=== PATIENT | male | born 1940 | race Caucasian/White ===

== ENCOUNTER 2023-10-31 09:14 | Emergency (ER) | payer MEDICARE, SELFPAY ==
[2023-10-31 09:28] VITALS: BP 169/72
--- NOTE | 2023-10-31 09:56 | ED.GENMED ---
History of Present Illness
General
Chief Complaint: Flank Pain
Source: patient and spouse
Exam Limitations: none
Time Seen by Provider: 10/31/23 09:46
Travel History
Have you had any contact with someone who has COVID-19?: No
Do you have any symptoms of coronavirus? Fever > 100 degrees, chills, cough, shortness of breath, sore throat, loss of taste or smell, muscle aches, or headache?: No
History of Present Illness
History of Present Illness:
Developed right flank and mild right back pain this morning. Some fullness. No vomiting. Mild nausea. No urinary symptoms no fever. Had 3 mildly loose bowel movements this morning. No history of similar pain.
Past History
Past History
ED Past Medical History: Arrthythmia, CAD, HTN, Hypercholesterolemia and Other (kidney stones.)
ED Past Surgical History: Cardiac (cardiac stents)
Patient has exhibited threatening behavior?: No
Social History
Tobacco: Former smoker (40 years ago.)
Alcohol: None (last drank 1.5 years ago.)
Drug: None
Personal: Partner
Living: with family
Review of Systems
Review of Systems
All Other Systems: Not applicable
Constitutional: Denies fever
Respiratory: Reports no symptoms
Cardiac: Reports no symptoms
Phy Exam
Physical Exam
Physical Exam:
GENERAL: Alert and oriented in no apparent distress
EYE: Orbits normal.
NECK: Supple, nontender
ENT: Pharynx without erythema
CARDIAC: Regular rate and rhythm with occasional irregular beat. Mild midsystolic murmur
LUNGS: Clear breath sounds,normal
ABDOMEN: Soft, bowel sounds present. No distention. Minimal right upper quadrant but very lateral in nature. No true CVA tenderness
NEUROLOGICAL: Alert and oriented , grossly non-focal
SKIN: Warm and dry, no rash or lesion, no discoloration, skin intact.
MUSCULOSKELETAL: No edema,no deformity.Good color
PSYCH: Normal and appropriate interaction.
Course
Orders/Labs/Results
Orders:
Orders
10/31/23 09:54
IV Insert/Care/Rem.- Treatment PRN
0.9% Sodium Chloride 500 ml [Nss] 500 ml IV BOLUS
10/31/23 09:55
CT Abd/pel Without Iv Or Oral Urgent
Comment:
Reason For Exam: Right flank pain
10/31/23 10:01
Basic Metabolic Panel Urgent
Complete Blood Count/With Diff Urgent
Lipase Urgent
10/31/23 10:11
PT/INR [Prothrombin Time] Urgent
10/31/23 10:21
Urinalysis Reflex To Culture Urgent
Date Specimen was Collected: 10/31/23
Time Specimen was Collected: 10:13
Urine Microscopic Reflex Cult Urgent
10/31/23 11:04
Comprehensive Metabolic Panel Urgent
Comment: ADD ON
Direct Bilirubin Urgent
Comment: ADD ON
Lipase Urgent
Comment: ADD ON
10/31/23 11:41
Add On- LAB Stat
Tests Added?: sodium, chloride, CO2, BUN, Veterans Contact Representative, glucose, calcuim, lipase
10/31/23 12:01
US Abdomen Complete/Upper Urgent
Reason For Exam: Right flank pain. Evaluate gallbladder
10/31/23 15:32
Clonidine [Catapres] 0.1 mg PO NOW STA
HydrALAZINE [Apresoline] 50 mg PO NOW STA
10/31/23 15:55
Add On- LAB Stat
Tests Added?: LFTs
Abnormal Lab Results
10/31/23 10/31/23 10/31/23
10:01 10:11 10:21
RBC 4.51 L 10^6/uL
(4.70-6.10)
MCHC 32.8 L g/dL
(33.0-37.0)
Absolute Neuts (auto) 7.5 H 10^3/uL
(1.4-6.5)
Neutrophils % 81.3 H %
(42.2-75.2)
Lymphocytes % 13.4 L %
(20.5-51.1)
PT 21.4 H Sec
(11.4-14.6)
BUN 21 H mg/dl
(9-20)
Glucose 127 H mg/dl
(70-99)
Ur Occult Blood Reflex 3+ A
(Negative)
Urine RBC 26-30 A /HPF
(0-2)
10/31/23
11:04
RBC
MCHC
Absolute Neuts (auto)
Neutrophils %
Lymphocytes %
PT
BUN
Glucose 116 H mg/dl
(70-99)
Ur Occult Blood Reflex
Urine RBC
10/31/23 10:01
10/31/23 11:04
Vital Signs
Initial and Last Documented VS:
Initial Vital Signs
Temp Pulse Resp BP Pulse Ox
97.8 F 58 16 169/72 96
10/31/23 09:28 10/31/23 09:28 10/31/23 09:28 10/31/23 09:28 10/31/23 09:28
Last Documented Vital Signs
Temp Pulse Resp BP Pulse Ox
97.8 F 57 14 155/75 97
10/31/23 09:28 10/31/23 14:29 10/31/23 11:51 10/31/23 14:29 10/31/23 14:29
MDM/Problems Addressed
Differential Diagnosis Includes:
Nontraumatic relatively sudden right flank and back pain. Differential would include kidney stone, gallbladder, musculoskeletal. Workup in progress
*Radiology
Radiology exam reviewed: radiology read reviewed (6 mm left renal stone. Simple cyst. No acute gallbladder issue) and other (CT scan moderate renal disease. Nonobstructing stone. Prostate enlargement)
*Pulse Oximetry
Patient hypoxic: no
*Critical Care Note
Total Time (30-74mins, 75-104mins- exclusive of procedures): Not Applicable
Data Reviewed
Review of Other/Old Records Reveals: Labs and Testing
Update Note
Update Note:
Patient is remained very stable and nontoxic. No serious etiology found. Has not required pain management. Appears very comfortable. Only positive finding is minor hematuria. Stable for discharge to follow-up.
ED Attending Note
-
Portions of this chart may have been created with voice recognition software.� Occasional wrong word or��sound alike� substitutions may have occurred due to the inherent limitations of voice recognition software.
Discharge Plan
Departure
Patient Disposition: Home (Routine Discharge)
Date of Disposition: 10/31/23
Time of Disposition: 17:20
Patient with high blood pressure during this ER visit?: Yes
Discharge Problem:
Right flank pain, Hematuria
Instructions: Flank Pain (DC), Blood in the Urine (Hematuria), Adult (DC), BLOOD PRESSURE
Referrals:
Quentin Nicholas MD [Family Provider] - Follow up in 2-3 days
Rahul Valenzuela MD [Active] - Next open appointment
Activity Restrictions/Additional Instructions:
Your INR is 1.8. Follow that up with your primary physician
Call urology for close follow-up
Tylenol only for pain
As we discussed, if symptoms progress or fever vomiting increasing pain shortness of breath or any other concerning symptoms, please return to the ER immediately for reevaluation
Interventions
Interventions:
*Risk Screen - Suicide Last Done: 10/31/23 09:28
*General Assessment Last Done: 10/31/23 09:28
*Neglect/Abuse Screening Last Done: 10/31/23 09:28
*ED COVID-19 Vaccine History Last Done: 10/31/23 09:52
QM-Idtvzc-Liglnxccip Assessment Last Done: 10/31/23 09:52
ED-Male Genitourinary Assessment Last Done: 10/31/23 09:52
Discharge Date and Time
Print Language: MACEDONIAN
[2023-10-31 10:13] LABS: % Basophils 0.4 % (0-2); % Eosinophils 0.1 % (0-6); % Immature Granulocytes 0.3 % (0-0.5); % Lymphocytes 13.4 % (20.5-51.1); % Monocytes 4.5 % (1.7-9.3); % Neutrophils 81.3 % (42.2-75.2); Absolute Lymphocytes 1.2 10^3/uL (1.2-3.4); Absolute Monocytes 0.4 10^3/uL (0.1-0.6); Absolute Neutrophils 7.5 10^3/uL (1.4-6.5); Hematocrit 41.1 % (39.0-52.0); Hemoglobin 13.5 g/dL (13.0-18.0); Mean Corp Hgb Conc. 32.8 g/dL (33.0-37.0); Mean Corpuscular Hgb 29.9 pg (27.0-31.0); Mean Corpuscular Volume 91.1 fL (80.0-94.0); Mean Platelet Volume 9.3 fL (7.4-10.4); Nucleated Red Blood Cells % 0 % (-); Platelet Count 267 10^3/uL (130-400); Red Blood Cell Count 4.51 10^6/uL (4.70-6.10); Red Cell Dist. Width 12.7 % (11.5-14.5); White Blood Cell Count 9.2 10^3/uL (4.8-10.8)
[2023-10-31 10:31] LABS: INR 1.88; PT 21.4 Sec (11.4-14.6)
[2023-10-31 10:39] LABS: Urine Albumin Negative (Neg - Trace); Urine Bilirubin Negative (Negative); Urine Character Clear (Clear); Urine Color Yellow; Urine Glucose Negative (Negative); Urine Ketone Negative (Negative); Urine Leukocyte Negative (Negative); Urine Nitrite Negative (Negative); Urine Occult Blood 3+ (Negative); Urine Urobilinogen Negative (Neg - 1+)
[2023-10-31] MEDS: NSS 500 IV (11:17)
[2023-10-31 11:19] LABS: Potassium 4.1 mmol/L (3.5-5.1)
[2023-10-31 11:34] LABS: Urine Red Blood Cell 26-30 /HPF (0-2); Urine Squamous Cell 0-2 /LPF (Few)
[2023-10-31 11:51] VITALS: BP 147/71
[2023-10-31 13:07] LABS: Blood Urea Nitrogen 21 mg/dl (9-20); Calcium 9.4 mg/dl (8.4-10.2); Carbon Dioxide 24 mmol/L (22-30); Chloride 104 mmol/L (98-107); Glucose 127 mg/dl (70-99); Sodium 137 mmol/L (135-145); eGFR > 60.00
[2023-10-31 13:13] LABS: Lipase 117 U/L (23-300)
[2023-10-31 14:29] VITALS: BP 155/75
[2023-10-31 15:02] LABS: Blood Urea Nitrogen 20 mg/dl (9-20); Calcium 9.3 mg/dl (8.4-10.2); Carbon Dioxide 25 mmol/L (22-30); Chloride 106 mmol/L (98-107); Glucose 116 mg/dl (70-99); Lipase 100 U/L (23-300); Sodium 137 mmol/L (135-145); eGFR > 60.00
[2023-10-31] MEDS: APRESOLINE 50 MG PO (16:03)
[2023-10-31] MEDS: CATAPRES 0.100000000000000006 MG PO (16:03)
[2023-10-31 16:14] LABS: ALT (SGPT) 38 U/L (0-50); AST (SGOT) 37 U/L (17-59); Albumin 3.9 g/dl (3.5-5.0); Alkaline Phosphatase 59 U/L (38-126); Direct Bilirubin 0.3 mg/dl (0.0-0.4); Total Bilirubin 0.6 mg/dl (0.2-1.3); Total Protein 6.6 g/dl (6.3-8.2)
[2023-10-31 17:25] VITALS: BP 141/66
== END 2023-10-31 17:31 | disposition home or self-care (01) ==
LOC: EMR 09:14
PROVIDERS: EMERGENCY PHYSICIAN Emergency Medicine; FAMILY PHYSICIAN Family Medicine
DX: R10.9 Unspecified abdominal pain (principal); M54.9 Dorsalgia, unspecified; I25.10 Atherosclerotic heart disease of native coronary artery without angina pectoris; I10 Essential (primary) hypertension; E78.00 Pure hypercholesterolemia, unspecified; Z87.442 Personal history of urinary calculi; Z87.891 Personal history of nicotine dependence; Z95.5 Presence of coronary angioplasty implant and graft
CPT/HCPCS: 99284; 96360; 96361; 74176; 76700; 80048; 80053; 81003; 81015; 82248; 83690; 85025; 85610